=== PATIENT | male | born 1965 | race Caucasian/White ===

== ENCOUNTER 2018-01-30 08:09 | Emergency (ER) | payer OTHER ==
[~2018-01-30] VITALS: Ht 175.3 cm; Wt 79.4 kg
[2018-01-30 08:24] VITALS: BP 141/103
[2018-01-30] MEDS ORDERED: Tetracaine 0.5% Opth 4ml Soln RIGHT EYE ONE (08:30)
[2018-01-30] MEDS ORDERED: Fluorescein Strips RIGHT EYE ONE (08:30)
[2018-01-30] MEDS ORDERED: OCUFLOX5 ML LEFT EYE (08:45)
[2018-01-30 08:55] VITALS: BP 138/101
--- NOTE | 2018-01-30 09:54 | Emergency Room Report ---
History of Present Illness General Chief Complaint: Eye Problems Source: Patient Present Illness HPI 52-year-old male presents ED for evaluation. Complaining of R eye irritation. Started about 30 minutes ago. Does not know the cause. Denies any known injury to the eye. States his eye feels irritated and feels like "something in the eye". Notes tearing. Denies photophobia or blurry vision. Denies fevers or chills. Denies any discharge. No other aggravating relieving factors. Denies any other associated symptoms Allergies: Coded Allergies: No Known Allergies (Unverified , 01/30/18) Patient History Past Medical History: none Past Surgical History: none Pertinent Family History: none Social History: Denies: smoking, alcohol use, drug use Immunizations: UTD Reviewed Nursing Documentation: PMH: Agreed; PSxH: Agreed Nursing Documentation-PMH Past Medical History: No Stated History Review of Systems All Other Systems: negative except mentioned in HPI Physical Exam Vital Signs Date Time Temp Pulse Resp B/P (MAP) Pulse Ox O2 Delivery O2 Flow Rate FiO2 01/30/18 08:13 98.2 94 18 143/103 98 Room Air Sp02 EP Interpretation: reviewed, normal General Appearance: no apparent distress, alert, GCS 15, non-toxic Head: normocephalic Eyes: right eye fluoroscene uptake - corneal abrasion R eye, right eye Scleral Injection; left eye PERRL; bilateral eye normal inspection, bilateral eye EOMI, bilateral eye visual acuity ENT: hearing grossly normal, normal pharynx, no angioedema, normal voice Neck: normal inspection Respiratory: normal inspection Cardiovascular #1: normal inspection Gastrointestinal: normal inspection Rectal: deferred Genitourinary: no CVA tenderness Musculoskeletal: normal inspection Neurologic: alert, oriented x3, responsive, motor strength/tone normal, sensory intact, speech normal Psychiatric: normal inspection Skin: normal inspection Lymphatic: normal inspection Medical Decision Making Diagnostic Impression: Primary Impression: Eye problem ER Course Hospital Course 52-year-old male presents to ED with R eye pain, feel something in his eye Differential diagnoses include: conjunctivitis, traumatic iritis, foreign body, corneal abrasion Clinical course Patient placed on stretcher. After initial history, I applied tetracaine and Fluorescin to the affected eye. Using Wood's lamp I examined the eyes, i see possible corneal abrasion. I inverted eyelid and saw no evidence of foreign body. I provided copious eye irrigation using normal saline. Symptoms improved. Discussed findings with patient. We'll discharge with ofloxacin. Recommend close follow-up with ophthalmology as outpatient. I will provide referrals Diagnosis - eye problem Stable and discharged to home with prescription for Ocuflox. Followup with PMD/ Optho. Return to ED if symptoms recur or worsen Last Vital Signs Date Time Temp Pulse Resp B/P (MAP) Pulse Ox O2 Delivery O2 Flow Rate FiO2 01/30/18 08:55 98.7 86 16 138/101 99 Room Air Status: improved Disposition: HOME, SELF-CARE Condition: Stable Scripts Ofloxacin (OCUFLOX) 5 Ml Drops 1 DROP LEFT EYE QID for 7 Days, ML Prov: Won Fishman MD 01/30/18 Referrals: Larry Lyles MD, Maziar M.D. MD Departure Forms: Return to Work Return to Work Date: Jan 30, 2018 Work Restrictions: None Patient Instructions: Corneal Abrasion, [id number] Won Fishman MD Jan 30, 2018 09:54
== END 2018-01-30 08:56 | disposition home or self-care (01) ==
LOC: EMR 08:32
DX: H57.9 Unspecified disorder of eye and adnexa (principal)
CPT/HCPCS: 99283